=== PATIENT | female | born 2000 | race African-American/Black ===

== ENCOUNTER 2018-04-26 23:23 | Emergency (ER) | payer OTHER ==
[~2018-04-26] VITALS: Ht 165.1 cm; Wt 91.9 kg
[~2018-04-26 23:23] MED LIST: MACROBID100 MG PO; NAPROSYN500 MG PO; NAPROXEN500 MG PO; PREDNISONE20 MG PO; VENTOLIN HFA18 GM IH; ZITHROMAX Z-PA250 MG PO
[2018-04-27 00:18] LABS: HEMATOCRIT 38.1 % (36.0-46.0); HEMOGLOBIN 12.9 G/DL (11.9-15.5); MCH 30.6 PG (29.0-34.0); MCHC 33.9 G/DL (30.0-36.0); MCV 90.3 FL (83-99); PLATELET COUNT 230 K/uL (156-360); RBC DIS.WIDTH-CV 12.4 % (11.8-14.6); RBC DIS.WIDTH-SD 40.9 % (39-53); RED BLOOD COUNT 4.22 M/uL (3.80-5.20); WHITE BLOOD COUNT 9.1 K/uL (4.1-10.2)
[2018-04-27 00:19] LABS: APPEARANCE CLEAR ((CLEAR)); BILIRUBIN NEGATIVE; BLOOD NEGATIVE; COLOR YELLOW ((YELLOW)); GLUCOSE (STRIP) NEGATIVE; KETONES NEGATIVE; LEUKOCYTES NEGATIVE; NITRITE NEGATIVE; PROTEIN (STRIP) NEGATIVE; SPECIFIC GRAVITY 1.021 (1.000-1.030); UCUL ADDED? NO
[2018-04-27 00:28] LABS: ALBUMIN 4.2 g/dL (3.2-4.8)
[2018-04-27 00:29] LABS: CHLORIDE 108 mEq/L (99-109); POTASSIUM 4.1 mEq/L (3.7-5.4); SODIUM 139 mEq/L (136-147)
[2018-04-27 00:31] LABS: GLUCOSE 97 mg/dL (70-99); TOTAL PROTEIN 7.2 g/dL (6.4-8.3)
[2018-04-27 00:33] LABS: TOTAL BILIRUBIN 0.5 mg/dL (0.0-1.0)
[2018-04-27 00:34] LABS: ALKALINE PHOSPHATASE 71 IU/L (3-129)
[2018-04-27 00:35] LABS: CREATININE 0.8 mg/dL (0.6-1.3); GFR ESTIMATE (CALCULATED) > 59 mL/min/
[2018-04-27 00:36] LABS: AST (GOT) 19 IU/L (2-34); UREA NITROGEN (BUN) 9 mg/dL (9-23)
[2018-04-27 00:38] LABS: ALT (GPT) 11 IU/L (3-49)
[2018-04-27 00:43] LABS: QUANTITATIVE HCG < 4.0 MIU/ML
[2018-04-27] MEDS ORDERED: KETOROLAC TROME10 MG PO (01:49)
[2018-04-27 02:51] VITALS: BP 109/72
[2018-04-27 14:58] LABS: SOURCE SWAB
== END 2018-04-27 02:43 | disposition home or self-care (01) ==
LOC: EME 23:23
PROVIDERS: Emergency Medicine
DX: N83.201 Unspecified ovarian cyst, right side (principal); F17.200 Nicotine dependence, unspecified, uncomplicated
CPT/HCPCS: 76856; 80053; 81003; 84702; 85027; 87210; 87491; 87591; 99281; 99284; J1885